=== PATIENT | female | born 1985 | race Hispanic/Latino ===

== ENCOUNTER 2017-12-25 02:00 | Inpatient (IN) | payer OTHER ==
[~2017-12-25] VITALS: Ht 167.6 cm; Wt 123.4 kg
[~2017-12-25 02:00] MED LIST: DAILY MULTIPLE1 EACH PO; VYBRID PO
--- NOTE | 2017-12-25 17:07 | Operative Report ---
Operative/Inv Procedure Report Surgery Date: 12/25/17 Name of Procedure: Laparoscopic gastric bypass Pre-Operative Diagnosis: Severe morbid obesity BMI 44, anemia, depression, Post-Operative Diagnosis: Severe morbid obesity with a BMI of 44, anemia, depression Estimated Blood Loss: 50ml to 100ml Surgeon/Broadcast News Producer: Lulu NAVA,Pedro CHAVEZ Anesthesia: general endotracheal tube Urine Output: None not measured Drains: A WENDY drain in the left upper quadrant over the gastric edge, and a WENDY drain over the jejunojejunostomy coming out the right lower quadrant Microbiology: None none Complications: No complications Condition: Stable Operative Indication: The patient is a 31-year-old female with severe morbid obesity despite all medical times a week loss she has not succeeded. His undergone workup and evaluation for gastric bypass. I've explained the risks and potential complications of the procedure in detail. Including bleeding infection deep venous thrombosis pulmonary embolism injury to the esophagus stomach small intestine large intestine injury to the surrounding organs among other potential complications, the patient is consented for surgical intervention. Operative/Procedure Note Note: Patient was brought into the operating room and placed on the operating room table in the supine position. After the administration of general anesthesia she was prepped and draped in sterile fashion. There was a footboard at the bottom of the table. An incision was made below the umbilicus transversely down to the fascia fascia was incised and sutured 2-0 Prolene sutures are placed in the fascia. Was inserted into the abdomen the abdomen was insufflated with CO2 gas. The following incisions were made 1 subxiphoid and a Johan liver retractor was inserted liver was elevated. Was no evidence of a hiatal hernia. A 5 mm port is placed in the right upper quadrant one in the left upper quadrant and left midabdomen. The [place] port in the right midabdomen and one care home between the xiphoid and the umbilicus. At this time the there was noted to be adhesions of fatty omentum in the previous what appeared to be in a sterile incision site and this was taken down with the Harmonic scalpel. The fatty omentum was then divided to the transverse colon. The ligament of Treitz was then taken down with the Harmonic device by [employer]. An opening was created along the lesser curve of the stomach approximately 5-6 cm from the GE junction. No created behind the stomach. NG tube and esophageal stethoscope were removed. A purple stapler 45 second firing of a purple stapler 45 was performed. With the stapler 60 mm long purple heading vertically the wall tube was then inserted into the stomach pouch. Stapling was then performed with approximately 3 firings of a purple cartridge 60 mm. The pouch was created. Hemostasis of the staple lines were achieved with electrocautery. 4 x 4 was used for hemostasis. An opening was created in the anterior aspect of the stomach pouch and the wall tube was passed through this. The transverse colon was then elevated and ligament of Treitz was identified and the small bowel was run 50 cm a 10 cartridge was then used to divide the small bowel putting 2 clips on the distal bowel this would be the Maxim limb. The biliopancreatic limb was then placed laterally and the Maxim limb medially and opening is created in the antimesenteric border of the Maxim limb proximal was 6 cm from the end. A purple cartridge 45 mm was inserted into the Maxim limb and then into the stomach the wall tube was palpable back into the esophagus. The anastomosis was then created approximately 35-40 mm stapled. An angle of doom stitch was placed with a 2-0 Vicryl. A 20V lock absorbable suture Maxon was then used do a full-thickness closure the wall tube was passed through after the first 3 throws. A second layer was then performed inverting and oversewn with the seromuscular layer for a 2 layer closure. The anastomosis was first tested with the air leak test clamping the distal bowel under layer of water there was no bubbling. And then a performed was a methylene blue test there was no leakage. The small bowel was run 125 cm 2 clips were placed on the distal bowel one on the proximal and opening was then made in the antimesenteric border of the Maxim limb and the biliopancreatic limb. Placed from proximal to distal on the biliopancreatic him from distal to proximal on the Maxim. Silk stitch was placed on the distal edge of the small bowel elevating it and a 10 cartridge was placed from proximal to distal on the Maxim limb and distal to proximal on the biliopancreatic. The opening was approximated with 2 3 interrupted 2-0 silk sutures. The anastomosis was then staple closed with a 10 cartridge 60 mm. Her bowels them removed. He opening in the mesentery was closed with 2-0 Maxon V lock. AP drain was placed over the gastrojejunal brought out the right upper quadrant WENDY was placed over the judgment judgment brought at the right midabdomen. Prior to closure and the small bowel large intestine liver all the other organs appeared within normal limits. Chest removed under direct vision there is no evidence of bleeding. The gas removed from the abdomen the Valsalva maneuvers performed. closed with 2 interrupted [id number] 0 Vicryl 0 Prolene sutures. The WENDY was sewn in with 2-0 nylon. Skin was closed with 4-0 Monocryl. Choices replacement wounds had sterile dressing on the wound. The patient out procedure well and dictation o'clock M.D.
[2017-12-25 18:11] VITALS: BP 132/90
--- NOTE | 2017-12-25 18:31 | PN- General Surgery ---
Subjective Subjective: Patient doing well since arriving to the floor. Complains of gas pain. Otherwise denies any fevers, chills, nausea, vomiting, chest pain, shortness of breath, leg swelling, or rashes. She has voided postoperatively and is tolerating minimal amounts of ice chips. Pain is well controlled with current analgesia. Objective Vital Signs and I&Os Vital Signs Date Time Temp Pulse Resp B/P B/P Pulse O2 O2 Flow FiO2 Mean Ox Delivery Rate 12/25 1822 Room Air 12/25 1811 98.1 108 18 132/90 96 Room Air Physical Exam: General: Alert, awake, no acute distress Abdomen: Obese, soft, nondistended, appropriately tender to palpation, dressings are clean, dry, and intact, 2 of which with minimal serosanguineous strikethrough, WENDY drain 2 with sanguinous output, drains were stripped at the bedside Extremities: No clubbing, cyanosis, or edema Current Medications: Current Medications Sig/Tiny Start time Last Medication Dose Route Stop Time Status Admin Acetaminophen 1,000 MG Q6 12/25 1800 AC 12/25 N/A 1 UNIT IV 12/26 1214 1844 Cefazolin Sodium 2 GM ONCE ONE 12/26 0100 AC N/A 1 UNIT IV 12/26 0129 Cefazolin Sodium 2,000 MG ONCE 12/25 0000 DC IV 12/25 2359 Dexamethasone 0 .STK-MED ONE 12/25 1128 DC .ROUTE Heparin Sodium 5,000 UNIT Q8 12/25 2200 AC (Porcine) SC Heparin Sodium 0 .STK-MED ONE 12/25 1128 DC (Porcine) .ROUTE Hydrocodone Bitart/ 15 ML Q6P PRN 12/25 1800 AC Acetaminophen PO Lorazepam 0.5 MG Q6PRN PRN 12/25 1800 AC IV Morphine Sulfate 2 MG Q4-6 PRN PRN 12/25 1800 AC IV Ondansetron HCl 4 MG Q6P PRN 12/25 1800 AC IV Pantoprazole Sodium 40 MG DAILY 12/26 0900 AC IV Potassium Chloride 20 MEQ .Q8H 12/25 1800 AC 12/25 Dextrose/Sodium 1,000 ML IV 1802 Chloride Simethicone 40 MG Q6P PRN 12/25 1800 AC 12/25 PO 1844 Results Last 48 Hours of Labs: Laboratory Tests 12/25 1103 Chemistry Total Beta HCG (NEGATIVE) NEGATIVE Urines Urine Test Cancelled Assessment/Plan Assessment/Plan This is a 32 yo female with a PMHx significant for anxiety and morbid obesity who is POD#0 s/p Laparoscopic RYGB. 1. Ambulate/IS/Turn/Cough/Deep Breathe 2. PRN analgesics and antiemetics 3. GI/DVT Px 4. Labs in am 5. NPO/IVF 6. Will d/w Dr. Reuben Lawson Problem List: 1. Morbid obesity 2. History of Maxim-en-Y gastric bypass Core Measures Venous Thromboembolism VTE Risk Factors No risk factors No Mechanical VTE Prophylaxis d/t N/A MechProphylax Ordered No VTE Pharm Prophylaxis d/t NA PharmProphylax ordered
--- NOTE | 2017-12-25 19:48 | Admission Core Measures ---
Acute Coronary Syndrome (CM) ACS Core Measures Acute Coronary Syndrome Diagnosis No Congestive Heart Failure (NEW) CHF Core Measures Congestive Heart Failure Diagnosis No Cerebrovascular Accident (NEW) CVA Core Measures CVA/TIA Diagnosis No Venous Thromboembolism VTE Core Tiana (View Protocol) VTE Risk Factors No risk factors No Mechanical VTE Prophylaxis d/t N/A MechProphylax Ordered No VTE Pharm Prophylaxis d/t NA PharmProphylax ordered Problem List As ranked by this Provider includes Assessment & Plan 1. Morbid obesity 2. History of Maxim-en-Y gastric bypass HOME MEDS Home Med List Multivitamin (Daily Multiple Vitamin) 1 EACH TABLET 1 TAB PO DAILY SUPPLEMENT (Reported) [VYBRID] 1 TAB PO DAILY ANXIETY (Reported)
--- NOTE | 2017-12-25 19:53 | Patient Discharge Instructions ---
Discharge Instructions General Discharge Information You were seen/treated for: Morbid Obesity You had these procedures: Laparoscopic Maxim en Y Gastric Bypass Watch for these problems: Redness, swelling or unusual drainage from incision sites. Nausea, vomiting, excessive diarrhea, or no bowel movements. Chest pain, cough, shortness of breath, palpitations, weakness, fainting, or excessive fatigue. Do not soak the wound: Yes Daily wet to dry dressings: No No bath, but you may shower: Yes Diet Continue normal diet: No Recommended Diet: Bariatric Activity Full Activity/No Limits: No Activity Self Limited: Yes Pounds, do NOT lift more than: 10 (x 2 weeks) Acute Coronary Syndrome Inclusion Criteria At DC or during hospital stay patient has or had the following: ACS DIAGNOSIS No Discharge Core Measures Meds if any: Prescribed or Continued at Discharge Meds if any: NOT Prescribed or Continued at Discharge Congestive Heart Failure Inclusion Criteria At DC or during hospital stay patient has or had the following: CHF DIAGNOSIS No Discharge Core Measures Meds if any: Prescribed or Continued at Discharge Meds if any: NOT Prescribed or Continued at Discharge Cerebrovascular accident Inclusion Criteria At DC or during hospital stay patient has or had the following: CVA/TIA Diagnosis No Discharge Core Measures Meds if any: Prescribed or Continued at Discharge Meds if any: NOT Prescribed or Continued at Discharge Venous thromboembolism Inclusion Criteria VTE Diagnosis No VTE Type NONE VTE Confirmed by (Test) NONE Discharge Core Measures - Per Current guidelines, there needs to be overlap - treatment for the first 5 days of Warfarin therapy. - If discharged on Warfarin prior to 5 days of - overlap therapy, the patient will need to be - assessed for post discharge needs including - *Post discharge parental anticoagulation - *Warfarin and/or parental anticoagulation education - *Follow up date to check INR post discharge At least 5 days overlap therapy as Inpatient No Meds if any: Prescribed or Continued at Discharge Note: Overlap Therapy is Warfarin and Anticoagulant Meds if any: NOT Prescribed or Continued at Discharge
--- NOTE | 2017-12-25 20:01 | Surgical Discharge Summary ---
Visit Information Visit Dates Admission Date: 12/25/17 Discharge Date: 12/28/17 History of Present Illness Chief Complaint: Morbid Obesity Medical History Blood Transfusion Hx: No Neurological: NONE EENT: NONE Cardiovascular: NONE Respiratory: NONE Gastrointestinal: GERD Hepatic: NONE Renal: NONE Musculoskeletal: NONE Psychiatric: anxiety Endocrine: NONE Blood Disorders: NONE Cancer(s): NONE TOBACCO EDUCATOR/Reproductive: PCOS History of MRSA: No History of VRE: No History of CDIFF: No Isolation History: Standard Surgical History Pertinent Surgical History: cholecystectomy, , GASTRIC BYPASS Psychosocial History Where Do You Live? Home Who Do You Live With? Spouse What is Your Primary Language? Greek Review of Systems: as per [facility] Hospital Course Course Attending Physician: Lulu NAVA,Pedro Soliman Primary Care Physician: Natasha Nicolas APRN [facility] Course: This is a 32 yo female with a PMHx significant for anxiety and morbid obesity who presented electively on 12/25/2017 for laparoscopic Maxim-en-Y gastric bypass. She underwent the aforementioned procedure without complication. Postoperative course was uncomplicated and her UGI on pod 1 was negative. Her WENDY's were removed prior to discharge on 12/28. By time of discharge patient was ambulating, voiding, tolerating a bariatric diet, and pain was well-controlled with oral analgesia. Plan is for patient to follow-up with Dr. Reuben Lawson in 1-2 weeks. She was instructed to call sooner with any other problems, questions, or concerns. Full details of her hospital course, operative report, diagnostic studies, and discharge instructions to be found in her electronic chart. Complications: none Allergies: Coded Allergies: olive extract (unknown 12/17/17) Significant Procedures: Surgery Date: 12/25/17 Name of Procedure: Laparoscopic gastric bypass Disposition Summary Disposition Principal Diagnosis: Severe morbid obesity with a BMI of 44, anemia, depression Additional Diagnosis: same as above s/p Surgery Date: 12/25/17 Name of Procedure: Laparoscopic gastric bypass Discharge Disposition: home or self care Discharge Instructions General Discharge Information Code Status: Full Code Patient's Diet: stage 1 Bariatric. weekly stage diet advancements as tolerated, as directed. Patient's Activity: no heavy lifting >10lbs. no strenuous activity. walk frequently. Follow-Up Instructions/Appts: one week follow up with Medications at Discharge Discharge Medications: Continue taking these medications: Multivitamin (Daily Multiple Vitamin) 1 EACH TABLET 1 Tablet ORAL DAILY Comments: NOT GIVEN IN HOSPITAL [VYBRID] 1 Tablet ORAL DAILY Comments: NOT GIVEN IN HOSPITAL Start taking the following new medications: Pantoprazole Sodium (Protonix) 40 MG TABLET.DR 1 Tablet ORAL DAILY Qty = 30 Refills = 2 Instructions: . Comments: Last Taken:12/28/17 Time:914 IV DOSE GIVEN IN HOSPITAL Hydrocodone/Acetaminophen (Hydrocodon-Acetamin 7.5-325/15) 7.5 MG-325 MG/15 ML ( 15 ML) SOLUTION 15 Milliliters ORAL EVERY 4-6 HOURS NEEDED as needed for pain control Qty = 200 No Refills Instructions: tylenol alternatively. do not combine.. Comments: Last Taken:12/28/17 Time:914 Copies To: Lulu NAVA,Pedro Soliman
[2017-12-25 21:46] VITALS: BP 142/90
[2017-12-26 06:10] VITALS: BP 122/82
--- NOTE | 2017-12-26 08:06 | PN- Student ---
Subjective Subjective: no overnight events, pain well controlled on current regiment, no BM/flatus. tolerated ice chips last night without n/v. voiding spntaniously, oob multiple times since procedure. denies headache, dizziness, cp, sob, fever, and chills. Objective Objective: Vital Signs Date Time Temp Pulse Resp B/P B/P Pulse O2 O2 Flow FiO2 Mean Ox Delivery Rate 12/26 0610 98.3 93 20 122/82 96 Room Air 12/25 2146 98.1 96 18 142/90 96 Room Air 12/25 1822 Room Air 12/25 1811 98.1 108 18 132/90 96 Room Air Intake & Output 12/26 1600 12/26 0800 12/26 0000 Intake Total 1500 625 Output Total 1280 562 Balance 220 63 Intake, IV 1500 625 Output, 80 162 Drainage Output, Urine 1200 400 Patient 272 lb Weight Weight Bed scale Measurement Method General: resting comfortably in bed, NAD, actively participated in exam, a&o x3 abdomen: softly distended, incisional dressing CDI, drain sponges with areas of saturation. no erythema surrounding incisions. normoactive bowel sounds in all quadrant. mild incisional and epigastric tenderness. cardiac: regular rhythm, normal rate, no mrg pulm: CTAB, slight reduction in deep inspiration due to pain, no accessory muscle usage Lower Extremities: no edema or erythema, ALPS in place, nontender, gross motor and sensory function intact, 2+ DP bilaterally Assessment/Plan Assessment: 32 y/o female, pmh of anxiety and obesity, POD# s/p lap naveen-en-y. painwell controlled, awaiting full return of bowel function, ganga drains putting out bloody discharge as expected Plan: continue current pain control UGI study negative stage 1 bariatric diet oob as tolerated PPx with SQH, pneumatic compression devices, oob. gi ppx with protonix change GANGA drain sponges f/u labs
[2017-12-26 08:34] LABS: ABSOLUTE BASOPHIL COUNT 0 /CUMM (0.0-0.2); ABSOLUTE EOSINOPHIL COUNT 0 /CUMM (0.0-0.7); ABSOLUTE GRANULOCYTE CT 13.6 /CUMM (1.4-6.5); ABSOLUTE LYMPH COUNT 1.8 /CUMM (1.2-3.4); BASOPHIL % 0 % (0.0-2.0); EOSINOPHIL % 0 % (0-5); GRANULOCYTE % 82.5 % (42.2-75.2); HEMATOCRIT 33.7 % (37-47); MEAN CORPUSCULAR HGB 24.2 PG (27.0-31.0); MEAN CORPUSCULAR HGB CONC 32.5 G/DL (33.0-37.0); MEAN CORPUSCULAR VOLUME 74.5 FL (81.0-99.0); MEAN PLATELET VOLUME 10.4 FL (7.4-10.4); PLATELET COUNT 325 /CUMM (130-400); RBC DISTRIBUTION WIDTH 16.2 % (11.5-14.5); RED BLOOD CELL CT 4.52 /CUMM (4.20-5.40); WHITE BLOOD CELL COUNT 16.4 /CUMM (4.8-10.8)
[2017-12-26] MEDS ORDERED: HYDROCODON-ACET15 ML PO (09:13)
[2017-12-26] MEDS ORDERED: PROTONIX40 M3 PO (09:13)
--- NOTE | 2017-12-26 09:22 | PN- Bariatrics ---
Subjective Subjective: Just returned from upper gi study. Denies nausea. Walking well. No dizziness. No shortness of breath. No chest pains. Voiding well. Eager to try stage 1 diet. Feels well overall. Objective Vital Signs and I&Os Vital Signs Date Time Temp Pulse Resp B/P B/P Pulse O2 O2 Flow FiO2 Mean Ox Delivery Rate 12/26 0610 98.3 93 20 122/82 96 Room Air 12/25 2146 98.1 96 18 142/90 96 Room Air 12/25 1822 Room Air 12/25 1811 98.1 108 18 132/90 96 Room Air Intake & Output 12/26 1600 12/26 0800 12/26 0000 12/25 1600 12/25 0800 12/25 0000 Intake Total 1500 625 Output Total 1280 562 Balance 220 63 Intake, IV 1500 625 Output, 80 162 Drainage Output, Urine 1200 400 Patient 272 lb Weight Weight Bed scale Measurement Method Physical Exam: General - alert & oriented x 3. comfortable. no acute distress. Lungs - clear bilaterally. no w/r/r. Cardiac - s1s2. reg. Abdomen - soft. morbidly obese. dressings c/d/i. WENDY drains with bloody drainage. expected urban-incisional tenderness. Extremities - warm bilaterally. no c/c/e. calves soft and nontender b/l. Current Medications: Current Medications Sig/Tiny Start time Last Medication Dose Route Stop Time Status Admin Acetaminophen 1,000 MG Q6 12/25 1800 AC 12/26 N/A 1 UNIT IV 12/26 1214 0527 Cefazolin Sodium 2 GM ONCE ONE 12/26 0100 DC 12/26 N/A 1 UNIT IV 12/26 0129 0001 Cefazolin Sodium 2,000 MG ONCE 12/25 0000 DC IV 12/25 2359 Dexamethasone 0 .STK-MED ONE 12/25 1128 DC .ROUTE Fentanyl Citrate 100 MCG .STK-MED ONE 12/25 1611 DC IM 12/25 1612 Fentanyl Citrate 250 MCG .STK-MED ONE 12/25 1219 DC IM 12/25 1220 Heparin Sodium 5,000 UNIT Q8 12/25 2200 AC 12/26 (Porcine) SC 0528 Heparin Sodium 0 .STK-MED ONE 12/25 1128 DC (Porcine) .ROUTE Hydrocodone Bitart/ 15 ML Q6P PRN 12/25 1800 AC 12/26 Acetaminophen PO 0601 Lorazepam 0.5 MG Q6PRN PRN 12/25 1800 AC IV Midazolam HCl 2 MG .STK-MED ONE 12/25 1221 DC IM 12/25 1222 Morphine Sulfate 2 MG Q4-6 PRN PRN 12/25 1800 AC 12/26 IV 0001 Ondansetron HCl 4 MG Q6P PRN 12/25 1800 AC IV Pantoprazole Sodium 40 MG DAILY 12/26 0900 AC IV Potassium Chloride 20 MEQ .Q8H 12/25 1800 AC 12/26 Dextrose/Sodium 1,000 ML IV 0242 Chloride Simethicone 40 MG Q6P PRN 12/25 1800 AC 12/25 PO 1844 Results Last 48 Hours of Labs: Laboratory Tests 12/26 12/25 0758 1103 Chemistry Sodium (137 - 145 mmol/L) 143 Potassium (3.5 - 5.1 mmol/L) 3.9 Chloride (98 - 107 mmol/L) 106 Carbon Dioxide (22 - 30 mmol/L) 23 Anion Gap (5 - 16) 14 Total Beta HCG (NEGATIVE) NEGATIVE Hematology CBC w Diff NO MAN DIFF REQ WBC (4.8 - 10.8 /CUMM) 16.4 H RBC (4.20 - 5.40 /CUMM) 4.52 Hgb (12.0 - 16.0 G/DL) 10.9 L Hct (37 - 47 %) 33.7 L MCV (81.0 - 99.0 FL) 74.5 L MCH (27.0 - 31.0 PG) 24.2 L MCHC (33.0 - 37.0 G/DL) 32.5 L RDW (11.5 - 14.5 %) 16.2 H Plt Count (130 - 400 /CUMM) 325 MPV (7.4 - 10.4 FL) 10.4 Gran % (42.2 - 75.2 %) 82.5 H Lymphocytes % (20.5 - 51.1 %) 11.2 L Monocytes % (1.7 - 9.3 %) 6.3 Eosinophils % (0 - 5 %) 0 Basophils % (0.0 - 2.0 %) 0 Absolute Granulocytes (1.4 - 6.5 /CUMM) 13.6 H Absolute Lymphocytes (1.2 - 3.4 /CUMM) 1.8 Absolute Monocytes (0.10 - 0.60 /CUMM) 1.0 H Absolute Eosinophils (0.0 - 0.7 /CUMM) 0 Absolute Basophils (0.0 - 0.2 /CUMM) 0 Urines Urine Test Cancelled Assessment/Plan Assessment/Plan This 32 year old female with hx severe morbid obesity (BMI 44), anemia, depression, POD#1 s/p laparoscopic gastric bypass upper gi study negative for leak / obstruction start stage 1 diet. decrease iv fluid rate hycet / morphine prn pain control hep sc - dvt ppx protonix - gi ppx oob/ambulation encouraged f/u labs monitor WENDY drain output d/c planning for tomorrow if stable patient seen & d/w Dr.Craig Lawson Core Measures Venous Thromboembolism VTE Risk Factors No risk factors No Mechanical VTE Prophylaxis d/t N/A MechProphylax Ordered No VTE Pharm Prophylaxis d/t NA PharmProphylax ordered
--- NOTE | 2017-12-26 10:03 | RADIOLOGY REPORT ---
EXAMINATION: FL UPPER GI SERIES CLINICAL INFORMATION: 32-year-old female, status post gastric bypass day 1, to rule out leak. COMPARISON: None TECHNIQUE: A single contrast upper GI series with fluoroscopy and spot imaging was performed. The patient ingested Gastrografin without difficulty and was evaluated in the upright position. FINDINGS: The plumbing contractor radiograph shows multiple surgical clips at left mid abdomen and 2 drainage catheters. A few surgical clips are also noted at right upper quadrant of the abdomen. Swallowing: Normal. Esophagus: Normal caliber and motility. Stomach: A small residual gastric pouch is visualized. The gastroenteric anastomosis is widely patent. Free flow of Gastrografin is noted from the stomach across the anastomosis into the small bowel loops. Specifically, no evidence of any contrast leak identified. FLUOROSCOPY TIME: 1 minute, 18 seconds. NUMBER OF IMAGES: 11 series. IMPRESSION: Postsurgical changes of gastric bypass surgery with patent anastomosis, and without any fluoroscopic evidence of leak.
[2017-12-26 13:56] VITALS: BP 112/70
[2017-12-26 20:38] VITALS: BP 140/80
[2017-12-27 06:52] VITALS: BP 136/56
[2017-12-27 08:25] LABS: ABSOLUTE BASOPHIL COUNT 0 /CUMM (0.0-0.2); ABSOLUTE EOSINOPHIL COUNT 0.1 /CUMM (0.0-0.7); ABSOLUTE GRANULOCYTE CT 9.3 /CUMM (1.4-6.5); ABSOLUTE LYMPH COUNT 2.9 /CUMM (1.2-3.4); ABSOLUTE MONOCYTE COUNT 0.6 /CUMM (0.10-0.60); BASOPHIL % 0.3 % (0.0-2.0); EOSINOPHIL % 0.5 % (0-5); GRANULOCYTE % 71.8 % (42.2-75.2); HEMATOCRIT 32.3 % (37-47); MEAN CORPUSCULAR HGB 23.7 PG (27.0-31.0); MEAN CORPUSCULAR HGB CONC 31.5 G/DL (33.0-37.0); MEAN CORPUSCULAR VOLUME 75.2 FL (81.0-99.0); MEAN PLATELET VOLUME 10.7 FL (7.4-10.4); RBC DISTRIBUTION WIDTH 17.1 % (11.5-14.5); WHITE BLOOD CELL COUNT 12.9 /CUMM (4.8-10.8)
[2017-12-27 09:15] LABS: PLATELET COUNT 306 /CUMM (130-400)
--- NOTE | 2017-12-27 11:58 | PN- Bariatrics ---
See Addendum Subjective Subjective: lower abd pain, pt feels as though it is gas pain. mild epigastric pain, no nv. no flatus or BM. has been ambulating, tolerating stage 1 diet without difficluty. no fever or illness. Objective Vital Signs and I&Os Vital Signs Date Time Temp Pulse Resp B/P B/P Pulse O2 O2 Flow FiO2 Mean Ox Delivery Rate 12/27 0552 98.6 90 18 136/56 94 12/26 203 98.4 85 18 140/80 96 Room Air 12/26 1356 98.5 80 20 112/70 94 Room Air Intake & Output 12/27 1600 12/27 0800 12/27 0000 12/26 1600 12/26 0800 12/26 0000 Intake Total 720 965 276 4634 625 Output Total 1125 70 750 1280 562 Balance -405 320 -30 345 63 Intake, IV 538 347 5965 625 Intake, Oral 120 390 270 Output, 125 70 50 80 162 Drainage Output, Urine 6756 403 5784 400 Patient 272 lb 272 lb Weight Weight Bed scale Measurement Method Physical Exam: wdwn aox3, nad, appears comfortable. heent- wnl no resp distress heart: rrr abd- obese, mild distension, incision sites cdi appropriate tenderness in the epigastrum. mild lower abd tenderness. drain site clean, thin bloody drainage noted from both ganga sites. BLE- nvi, no calf pain, no edema ganga output 1: 55/30/25 (6hrs) angel output 2: 30/10/10 (6hrs) Results Last 48 Hours of Labs: Laboratory Tests 12/27 12/26 0708 0758 Chemistry Sodium (137 - 145 mmol/L) 143 143 Potassium (3.5 - 5.1 mmol/L) 3.6 3.9 Chloride (98 - 107 mmol/L) 107 106 Carbon Dioxide (22 - 30 mmol/L) 24 23 Anion Gap (5 - 16) 12 14 BUN (7 - 17 mg/dL) 8 Creatinine (0.5 - 1.0 mg/dL) 0.7 Estimated GFR (>60 ml/min) > 60 BUN/Creatinine Ratio (7 - 25 %) 11.4 Hematology CBC w Diff NO MAN DIFF REQ NO MAN DIFF REQ WBC (4.8 - 10.8 /CUMM) 12.9 H 16.4 H RBC (4.20 - 5.40 /CUMM) 4.30 4.52 Hgb (12.0 - 16.0 G/DL) 10.2 L 10.9 L Hct (37 - 47 %) 32.3 L 33.7 L MCV (81.0 - 99.0 FL) 75.2 L 74.5 L MCH (27.0 - 31.0 PG) 23.7 L 24.2 L MCHC (33.0 - 37.0 G/DL) 31.5 L 32.5 L RDW (11.5 - 14.5 %) 17.1 H 16.2 H Plt Count (130 - 400 /CUMM) 306 325 MPV (7.4 - 10.4 FL) 10.7 H 10.4 Gran % (42.2 - 75.2 %) 71.8 82.5 H Lymphocytes % (20.5 - 51.1 %) 22.6 11.2 L Monocytes % (1.7 - 9.3 %) 4.8 6.3 Eosinophils % (0 - 5 %) 0.5 0 Basophils % (0.0 - 2.0 %) 0.3 0 Absolute Granulocytes (1.4 - 6.5 /CUMM) 9.3 H 13.6 H Absolute Lymphocytes (1.2 - 3.4 /CUMM) 2.9 1.8 Absolute Monocytes (0.10 - 0.60 /CUMM) 0.6 1.0 H Absolute Eosinophils (0.0 - 0.7 /CUMM) 0.1 0 Absolute Basophils (0.0 - 0.2 /CUMM) 0 0 Assessment/Plan Assessment/Plan This 32 year old female with hx severe morbid obesity (BMI 44), anemia, depression, POD#2 s/p laparoscopic gastric bypass stage 1 diet dc ivf hycet / morphine prn pain control hep sc - dvt ppx protonix - gi ppx oob/ambulation encouraged monitor GANGA drain output possible DC later today, VERONICA Lawson, will re evaluate this evening. Core Measures Venous Thromboembolism VTE Risk Factors No risk factors No Mechanical VTE Prophylaxis d/t N/A MechProphylax Ordered No VTE Pharm Prophylaxis d/t NA PharmProphylax ordered
[2017-12-27 15:10] VITALS: BP 110/62
[2017-12-27 20:59] VITALS: BP 150/93
[2017-12-28 06:38] VITALS: BP 122/84
[2017-12-28] MEDS ORDERED: PROTONIX40 M3 PO (09:36)
[2017-12-28] MEDS ORDERED: HYDROCODON-ACET15 ML PO (09:38)
--- NOTE | 2017-12-28 10:36 | PN- General Surgery ---
Subjective Subjective: Awake, alert, no complaints Had a BM last night and has had a few more loose stools this morning and feels much better. Pain is well controlled with meds Ambulating without difficulty, tolerating stage one diet without pain or nausea Objective Vital Signs and I&Os Vital Signs Date Time Temp Pulse Resp B/P B/P Pulse O2 O2 Flow FiO2 Mean Ox Delivery Rate 12/28 0638 98.0 88 20 122/84 97 12/27 2058 98.4 103 20 150/93 98 Room Air 12/27 1510 98.2 98 20 110/62 95 Room Air Intake & Output 12/28 1600 12/28 0800 12/28 0000 12/27 1600 12/27 0800 12/27 0000 Intake Total 240 303 712 2158 720 520 Output Total 330 415 582 696 0926 70 Balance -90 -75 -45 1020 -405 450 Intake, IV 510 600 100 Intake, Oral 240 128 592 0582 120 420 Number 1 1 Bowel Movements Output, 30 40 75 70 125 70 Drainage Output, Urine 300 375 382 522 3812 Patient 272 lb Weight Physical Exam: vss, afebrile General: alert and oriented times three Chest: clear anteriorly bilaterally, RRR Abd: soft, good bs, nontender Ext: warm, no edema, calves nontender Wds: all look good GANGA 1 35cc overnight shift of serosang fluid GANGA 2 35cc overnight serosang Assessment/Plan Assessment/Plan 32yo female s/p lap naveen-en-y pod 3, ugi negative pain well controlled tolerating diet bowels functioning dc home - all instructions given ganga's removed without difficulty Core Measures Venous Thromboembolism VTE Risk Factors No risk factors No Mechanical VTE Prophylaxis d/t N/A MechProphylax Ordered No VTE Pharm Prophylaxis d/t NA PharmProphylax ordered
== END 2017-12-28 12:00 | DRG 621 ==
LOC: 2NB 02:00 → SDA 02:00 → ENRESERV 16:37 → ENTRNSPT 17:19 → EDTRNSPTSTS 17:36 → EDTRNSPT 17:36 → 2NB 17:46 → CMPTRNSPT 18:05 → ENPENDDIS 12-28 09:34 → 2NB 12-28 12:00
PROVIDERS: Physician Assistant; Physician Assistant Surgical
PROC: 0D164ZA Bypass Stomach to Jejunum, Percutaneous Endoscopic Approach (ICD-10-PCS; principal; 2017-12-25)
PROC: 3E0T3BZ Introduction of Anesthetic Agent into Peripheral Nerves and Plexi, Percutaneous Approach (ICD-10-PCS; 2017-12-25)
DX: E66.01 Morbid (severe) obesity due to excess calories (principal); K76.0 Fatty (change of) liver, not elsewhere classified; D64.9 Anemia, unspecified; Z68.41 Body mass index [BMI] 40.0-44.9, adult; F32.9 Major depressive disorder, single episode, unspecified; F41.9 Anxiety disorder, unspecified; K21.9 Gastro-esophageal reflux disease without esophagitis; R73.03 Prediabetes; E28.2 Polycystic ovarian syndrome
CPT/HCPCS: 2NBSP; 36415; 36592; 74240; 81025; 82436; C9399; J0131; J0690; J1100; J1644; J7042; S5012